=== PATIENT | male | born 1960 | race African-American/Black ===

== ENCOUNTER → 2023-02-18 07:26 | Outpatient (CLI) | payer BC, SELFPAY ==
--- NOTE | 2023-02-18 07:37 | XR_ITS ---
FINAL REPORT CLINICAL HISTORY: foot pain FINDINGS: Right foot Three views were obtained. There is no acute fracture or dislocation. There are mild degenerative changes. Pes planus is identified. No soft tissue abnormality is identified. IMPRESSION: No acute process. Reviewed, Interpreted and Dictated by Jomar Catalan III, MD Transcribed by Cheyanne Tyler Authenticated and . [facility]
--- NOTE | 2023-02-18 07:37 | XR_ITS ---
FINAL REPORT CLINICAL HISTORY: foot pain FINDINGS: Left foot Three views were obtained. There is no acute fracture or dislocation. There are mild degenerative changes. There are 2nd and 3rd digit hammertoes. No soft tissue abnormality is identified. IMPRESSION: No acute process. Reviewed, Interpreted and Dictated by Jomar Catalan III, MD Transcribed by Cheyanne Tyler Authenticated and [facility]
== END ==
PROVIDERS: PCP Emergency Medicine; Visit Provider Podiatrist
DX: M79.671 Pain in right foot (principal); M79.672 Pain in left foot
CPT/HCPCS: 73630